=== PATIENT | female | born 1975 | race Caucasian/White ===

== ENCOUNTER 2021-02-15 13:53 | Emergency (ER) | payer BC ==
[~2021-02-15 13:53] MED LIST: Iopamidol 370 76% 100 ML VIAL ONE
[2021-02-15 14:35] LABS: Prothrombin Time 13.5 sec (12.0-14.7)
[2021-02-15 14:39] LABS: #Basophils 0.1 thou/uL (0.0-0.2); #Eosinphils 0.1 thou/uL (0.0-0.7); #Lymphocytes 3.7 thou/uL (1.20-3.40); #Monocytes 0.6 thou/uL (0.11-0.59); #Neutrophils 4.5 thou/uL (1.40-6.50); %Basophils 1.1 % (0.0-1.0); %Eosinophils 1.2 % (0.0-10.0); %Lymphocytes 41.1 % (21.0-51.0); %Monocytes 6.4 % (0.0-10.0); %Neutrophils 50.2 % (42.0-75.0); Hemoglobin 13.4 g/dL (12.0-16.0); Mean Corpuscular HGB CONC 35.1 g/dL (32.0-36.0); Mean Corpuscular Hemoglobin 34.1 pg (27.0-31.0); Mean Corpuscular Volume 97.2 fL (78.0-98.0); Mean Platelet Volume 7.3 fL (7.4-10.4); Platelet Count 279 thou/uL (130-400); RBC Distribution Width 11.5 % (11.5-14.5); Red Blood Cell (RBC) Count 3.92 mill/uL (4.20-5.40)
[2021-02-15 14:44] LABS: ALT (SGPT) 18 U/L (8-55); AST (SGOT) 14 U/L (5-34); Alkaline Phosphatase 37 U/L (40-110); Anion Gap 17 mmol/L (10-20); BUN (Urea Nitrogen) 11 mg/dL (7.0-18.7); Bilirubin, Total 0.4 mg/dL (0.2-1.2); Calc. Creatinine Clearance 0 mL/min (70-130); Calcium 9.1 mg/dL (7.8-10.44); Carbon Dioxide 26 mmol/L (22-29); Chloride 103 mmol/L (98-107); Glucose 110 mg/dL (70-105); Sodium 143 mmol/L (136-145)
[2021-02-15] MEDS ORDERED: Nitroglycerin 2% Ointment 1 INCH/1 GM Packet ONE (14:49)
[2021-02-15 14:55] LABS: Potassium 2.7 mmol/L (3.5-5.1)
[2021-02-15] MEDS ORDERED: Potassium Chloride 20 MEQ TAB ONE (15:04)
[2021-02-15] MEDS ORDERED: Potassium Chloride 20 MEQ/100 ML PREMIX BAG ONE (15:04)
[2021-02-15 15:06] LABS: RBC Morphology Normal
[2021-02-15] MEDS ORDERED: Aspirin Chewable 81 MG TAB ONE (15:42)
== END 2021-02-15 18:39 | disposition home or self-care (01) ==
LOC: BURERS 13:53
DX: G45.9 Transient cerebral ischemic attack, unspecified (principal); E87.6 Hypokalemia; K21.9 Gastro-esophageal reflux disease without esophagitis
CPT/HCPCS: 36416; 70450; 70496; 70498; 80053; 83735; 84484; 85025; 85610; 85730; 93005; 96365; 96366; 36415-59; J3480; Q9967